=== PATIENT | male | born 1950 | race Caucasian/White ===

== ENCOUNTER 2022-05-24 13:07 | Emergency (ER) | payer SELFPAY ==
[~2022-05-24] VITALS: Ht 180.3 cm; Wt 69.3 kg
[2022-05-24 14:16] VITALS: BP 124/72
[2022-05-24 14:56] LABS: Basophils # (auto) 0.1 10 ^3/uL (0-0.2); Basophils % (auto) 0.4 % (0.0-2.0); Eosinophils # (auto) 0 10 ^3/uL (0-0.8); Eosinophils % (auto) 0.2 % (0.0-7.0); Hematocrit 41.8 % (41.0-53.0); Hemoglobin 13.8 g/dL (13.5-17.5); Lymphocytes # (auto) 1.8 10 ^3/uL (0.4-5.4); Lymphocytes % (auto) 14.9 % (10.0-50.0); Mean Corpuscular Hemoglobin 32.6 pg (28.0-32.0); Mean Corpuscular Hgb Conc. 33.1 g/dL (32.0-36.0); Mean Corpuscular Volume 98.3 fL (80.0-100.0); Monocytes # (auto) 0.7 10 ^3/uL (0-1.3); Neutrophils # (auto) 9.3 10 ^3/uL (1.6-8.6); Neutrophils % (auto) 78.5 % (37.0-80.0); Red Blood Cells 4.25 10^6/uL (4.5-5.90); Red Cell Distribution Width 14.1 % (11.8-14.3); White Blood Cell 11.9 10^3/uL (4.4-10.8)
[2022-05-24 15:09] LABS: Albumin 3.7 g/dL (3.4-5.0); Calcium 9.6 mg/dL (8.5-10.1); Potassium 4.7 mmol/L (3.5-5.1)
[2022-05-24 15:13] LABS: BUN/Creatinine Ratio 23.4; Bilirubin, Total 0.7 mg/dL (0.2-1.0); Total Protein 7.6 g/dL (6.4-8.2)
[2022-05-24 15:46] LABS: Urine Bacteria NONE SEEN /hpf (None Seen); Urine Blood Negative /uL (Negative); Urine Mucus FEW (None Seen); Urine Specific Gravity 1.029 (1.001-1.035); Urine WBC 2 /hpf (0 - 3)
[2022-05-24] MEDS ORDERED: CEPH-322 PO (15:54)
[2022-05-24] MEDS ORDERED: METR500T PO (15:54)
[2022-05-24] MEDS ORDERED: IBU600T PO (15:54)
[2022-05-24] MEDS ORDERED: SODIUM CHLORIDE 0.9% 1,000 ML IVB ONE (16:00)
[2022-05-24] MEDS ORDERED: HYDROcodone-ACET 5/325MG TAB PO ONE (18:15)
== END 2022-05-24 18:26 | disposition home or self-care (01) ==
LOC: ER 13:07
DX: K80.80 Other cholelithiasis without obstruction (principal); K29.80 Duodenitis without bleeding
CPT/HCPCS: 36415; 74176; 80053; 81001; 83690; 84484; 85025